=== PATIENT | female | born 1935 | race Caucasian/White ===

== ENCOUNTER 2017-01-31 06:45 | Emergency (ER) | payer MEDICARE, OTHER ==
[2017-01-31 06:56] VITALS: BP 161/85
[2017-01-31] MEDS ORDERED: Sodium Chloride 0.9% 10 ML Syringe FLUSH PRN ×2 (06:59→08:07)
[2017-01-31] MEDS ORDERED: Aspirin 81 MG Tab.Chew PO ONE (06:59)
--- NOTE | 2017-01-31 08:02 | EDM.PDOC ---
ED HPI GENERAL MEDICAL PROBLEM - General Chief Complaint: Chest Pain Stated Complaint: CHEST PAIN Time Seen by Provider: 01/31/17 06:55 Source of Information: Reports: Patient History Limitations: Reports: No Limitations - History of Present Illness INITIAL COMMENTS - FREE TEXT/NARRATIVE: The patient presents with left chest, shoulder, upper back and arm pain. This all started this morning and it woke her up. She denies any trauma. The pain is sharp. The chest and back pain are gone but she still has left shoulder pain. This comes and goes. She denies shortness of breath. She has no fever, chills, cough, congestion, runny nose, abdominal pain, nausea or vomiting. She denies any leg pain or swelling. She has a pacemaker. Onset: Gradual Duration: Hour(s): (Woke her up this morning) Location: Reports: Chest, Back, Upper Extremity, Left (Shoulder) Quality: Reports: Sharp Severity: Moderate Improves with: Reports: None Worsens with: Reports: Movement Context: Reports: Activity (It woke her up) Associated Symptoms: Reports: Chest Pain. Denies: Cough, Fever/Chills, Headaches, Nausea/Vomiting, Shortness of Breath Chest Pain Score (Numeric/FACES): 10 - Related Data Allergies Allergy/AdvReac Type Severity Reaction Status Date / Time No Known Allergies Allergy Verified 01/31/17 06:56 Home Meds: Home Meds Apixaban [Eliquis] 5 mg PO BID 04/03/14 [History] Aspirin [Roni Chewable Aspirin] 81 mg PO DAILY 04/03/14 [History] Jem Mag Chewable PO QPM 04/03/14 [History] Cholestrol Reduction Complex PO BID 04/03/14 [History] Lecithin PO BID 04/03/14 [History] Metoprolol Tartrate PO BID 04/03/14 [History] [place] Guard PO BID 04/03/14 [History] Osteo Matrix PO BID 04/03/14 [History] Ubidecarenone [Co Q-10] PO QPM 04/03/14 [History] Vitamin B Complex [B Complex] PO 1200 04/03/14 [History] Vitilzer Gold PO QAM 04/03/14 [History] Ketorolac [Acular 0.5% Ophth Soln] 1 drop OP TID #1 bottle 04/04/14 [Rx] Past Medical History HEENT History: Reports: Cataract Cardiovascular History: Reports: Hypertension, Pacemaker Psychiatric History: Reports: Anxiety Social & Family History - Family History Family Medical History: Noncontributory - Tobacco Use Smoking Status *Q: Former Smoker Used Tobacco, but Quit: Yes Month Tobacco Last Used: 1 - Recreational Drug Use Recreational Drug Use: No ED ROS GENERAL - Review of Systems Review Of Systems: See Below Constitutional: Reports: No Symptoms HEENT: Reports: No Symptoms Respiratory: Reports: No Symptoms Cardiovascular: Reports: Chest Pain Endocrine: Reports: No Symptoms GI/Abdominal: Reports: No Symptoms : Reports: No Symptoms Musculoskeletal: Reports: Shoulder Pain (Left), Arm Pain (Left), Back Pain ( Left upper) Skin: Reports: No Symptoms Neurological: Reports: No Symptoms ED EXAM, GENERAL - Physical Exam Exam: See Below Exam Limited By: No Limitations General Appearance: Alert, No Apparent Distress Ears: Normal External Exam Nose: Normal Inspection Head: Atraumatic, Normocephalic Neck: Normal Inspection Respiratory/Chest: No Respiratory Distress, Lungs Clear, Normal Breath Sounds Cardiovascular: Regular Rate, Rhythm, No Edema, No Murmur GI/Abdominal: Soft, Non-Tender, No Organomegaly, No Mass Back Exam: Normal Inspection Extremities: Other (Pain upon palpation to the left posterior shoulder. Good sensation and pulses distally.) Neurological: Alert, Oriented, No Motor/Sensory Deficits EKG INTERPRETATION EKG Date: 01/31/17 Time: 06:52 Rhythm: Other (AV dual-paced complexes with some inhibition) [place]: Normal P-Wave: Present QRS: Normal ST-T: Normal QT: Normal Course - Vital Signs Last Recorded V/S: Last Vital Signs Temp 98.5 F 01/31/17 06:52 Pulse 96 01/31/17 06:52 Resp 18 01/31/17 06:52 BP 161/85 H 01/31/17 06:52 Pulse Ox 94 L 01/31/17 06:52 - Orders/Labs/Meds Orders: Active Orders 24 hr Category Date Time Status Cardiac Monitoring [RC] . DIRECTED Care 01/31/17 06:59 Active EKG Documentation Completion [RC] STAT Care 01/31/17 06:59 Active Oxygen Therapy [RC] PRN Care 01/31/17 06:59 Active Peripheral IV Care [RC] . DIRECTED Care 01/31/17 06:59 Active Chest 1V Frontal [CR] Stat Exams 01/31/17 06:59 Taken Sodium Chloride 0.9% [Normal Saline] 100 ml Med 01/31/17 08:15 Active IV ASDIRECTED Sodium Chloride 0.9% [Saline Flush] Med 01/31/17 06:59 Active 10 ml FLUSH ASDIRECTED PRN Sodium Chloride 0.9% [Saline Flush] Med 01/31/17 08:07 Active 10 ml FLUSH ONETIME PRN Peripheral IV Insertion Adult [OM.PC] Stat Oth 01/31/17 06:59 Ordered Medication Orders Sodium Chloride (Normal Saline) 100 mls @ 80 mls/hr IV ASDIRECTED CRUZ Last Admin: 01/31/17 08:20 Dose: 80 mls/hr Sodium Chloride (Saline Flush) 10 ml FLUSH ASDIRECTED PRN PRN Reason: Keep Vein Open Last Admin: 01/31/17 07:19 Dose: 10 ml Sodium Chloride (Saline Flush) 10 ml FLUSH ONETIME PRN PRN Reason: IV FLUSH Last Admin: 01/31/17 08:20 Dose: 10 ml Labs: Laboratory Tests 01/31/17 01/31/17 01/31/17 Range/Units 07:06 07:06 09:40 WBC 5.62 (3.98-10.04) K/mm3 RBC 4.92 (3.98-5.22) M/mm3 Hgb 15.2 (11.2-15.7) gm/L Hct 45.6 H (34.1-44.9) % MCV 92.7 (79.4-94.8) fl MCH 30.9 (25.6-32.2) pg MCHC 33.3 (32.2-35.5) g/dl RDW Std Deviation 43.2 (36.4-46.3) fL Plt Count 245 (182-369) K/mm3 MPV 10.3 (9.4-12.3) fl Neut % (Auto) 65.4 (34.0-71.1) % Lymph % (Auto) 19.6 (19.3-51.7) % [place] % (Auto) 10.9 (4.7-12.5) % Eos % (Auto) 3.4 (0.7-5.8) Baso % (Auto) 0.5 (0.1-1.2) % Neut # (Auto) 3.68 (1.56-6.13) K/mm3 Lymph # (Auto) 1.10 L (1.18-3.74) K/mm3 [place] # (Auto) 0.61 H (0.24-0.36) K/mm3 Eos # (Auto) 0.19 (0.04-0.36) K/mm3 Baso # (Auto) 0.03 (0.01-0.08) K/mm3 Sodium 139 (136-145) mEq/L Potassium 4.0 (3.5-5.1) mEq/L Chloride 101 (98-107) mEq/L Carbon Dioxide 30 (21-32) mEq/L Anion Gap 12.0 (5-15) BUN 31 H (7-18) mg/dL Creatinine 1.4 H (0.55-1.02) mg/dL Est Cr Clr Drug Dosing 29.00 mL/min Estimated GFR (MDRD) 36 (>60) mL/min BUN/Creatinine Ratio 22.1 H (14-18) Glucose 112 (83-115) mg/dL Calcium 10.2 H (8.5-10.1) mg/dL Total Bilirubin 0.7 (0.2-1.0) mg/dL AST 26 (15-37) U/L ALT 25 (14-59) U/L Alkaline Phosphatase 115 (46-116) U/L Troponin I < 0.017 < 0.017 (0.00-0.056) ng/mL Total Protein 7.4 (6.4-8.2) g/dl Albumin 3.3 L (3.4-5.0) g/dl Globulin 4.1 gm/dL Albumin/Globulin Ratio 0.8 L (1-2) Meds: Medications Generic Name Dose Route Start Last Admin Trade Name Freq PRN Reason Stop Dose Admin Sodium Chloride 100 mls @ 80 mls/hr 01/31/17 08:15 01/31/17 08:20 Normal Saline IV 80 mls/hr ASDIRECTED CRUZ Administration Sodium Chloride 10 ml 01/31/17 06:59 01/31/17 07:19 Saline Flush FLUSH 10 ml ASDIRECTED PRN Administration Keep Vein Open Sodium Chloride 10 ml 01/31/17 08:07 01/31/17 08:20 Saline Flush FLUSH 10 ml ONETIME PRN Administration IV FLUSH Discontinued Medications Generic Name Dose Route Start Last Admin Trade Name Jim PRN Reason Stop Dose Admin Aspirin 324 mg 01/31/17 06:59 01/31/17 07:18 Aspirin PO 01/31/17 07:00 324 mg ONETIME ONE Administration Hydromorphone HCl 0.5 mg 01/31/17 08:09 01/31/17 08:26 Dilaudid IVPUSH 01/31/17 08:10 0.5 mg ONETIME ONE Administration Sodium Chloride 250 mls @ 1,000 mls/hr 01/31/17 08:05 01/31/17 08:27 Normal Saline IV 01/31/17 08:19 1,000 mls/hr .BOLUS ONE Administration Iopamidol 100 ml 01/31/17 08:07 01/31/17 08:19 Isovue-370 (76%) IVPUSH 01/31/17 08:08 60 ml ONETIME ONE Administration - Re-Assessments/Exams Free Text/Narrative Re-Assessment/Exam: 01/31/17 08:19 I ordered oxygen as needed, EKG, CXR, labs, and aspirin. Her EKG shows AV dual- paced complexes. Her CXR shows no infiltrates. Her CBC is negative. Her creatinine was elevated at 1.4. Her troponin is negative. She still has some pain to her shoulder. I ordered her some dilaudid 0.5mg IV. She also has lower oxygen saturations of the upper 80s and low 90s at times with a good pleth. I have ordered a CT angio of her chest. 01/31/17 10:[address] looks good. She is doing better. Her repeat troponin is negative. She feels better and her oxygen saturations are better. I feel this is arthritis. I will have her follow up with Dr Garcia. Departure - Departure Time of Disposition: 10:30 Disposition: Home, Self-Care 01 Condition: Good Clinical Impression: Atypical chest pain Left shoulder pain Qualifiers: Chronicity: chronic Qualified Code(s): M25.512 - Pain in left shoulder; G89.29 - Other chronic pain Referrals: Laila Woodruff NP [Primary Care Provider] - Abran Garcia MD [Physician] - 2 Weeks Forms: ED Department Discharge Additional Instructions: Take tylenol or motrin for your pain. If this does not get better in a week, follow up with Dr Garcia. Please return if you are worse. - My Orders Last 24 Hours: My Active Orders 01/31/17 06:59 Cardiac Monitoring [RC] . DIRECTED EKG Documentation Completion [RC] STAT Oxygen Therapy [RC] PRN Peripheral IV Care [RC] . DIRECTED Chest 1V Frontal [CR] Stat Sodium Chloride 0.9% [Saline Flush] 10 ml FLUSH ASDIRECTED PRN Peripheral IV Insertion Adult [OM.PC] Stat 01/31/17 08:07 Sodium Chloride 0.9% [Saline Flush] 10 ml FLUSH ONETIME PRN 01/31/17 08:15 Sodium Chloride 0.9% [Normal Saline] 100 ml IV ASDIRECTED - Assessment/Plan Last 24 Hours: My Active Orders 01/31/17 06:59 Cardiac Monitoring [RC] . DIRECTED EKG Documentation Completion [RC] STAT Oxygen Therapy [RC] PRN Peripheral IV Care [RC] . DIRECTED Chest 1V Frontal [CR] Stat Sodium Chloride 0.9% [Saline Flush] 10 ml FLUSH ASDIRECTED PRN Peripheral IV Insertion Adult [OM.PC] Stat 01/31/17 08:07 Sodium Chloride 0.9% [Saline Flush] 10 ml FLUSH ONETIME PRN 01/31/17 08:15 Sodium Chloride 0.9% [Normal Saline] 100 ml IV ASDIRECTED
[2017-01-31] MEDS ORDERED: Sodium Chloride 0.9% 250 ML IV ONE (08:05)
[2017-01-31] MEDS ORDERED: Iopamidol 755 Mg/ML 100 ML Bottle IVPUSH ONE (08:07)
[2017-01-31] MEDS ORDERED: HYDROmorphone 0.5 MG/0.5 ML Syringe IVPUSH ONE (08:09)
[2017-01-31] MEDS ORDERED: Sodium Chloride 0.9% 100 ML IV SCH (08:15)
--- NOTE | 2017-01-31 08:51 | CT ---
CT chest Technique: Multiple axial sections through the chest were obtained. Intravenous contrast was utilized. Study has been performed as a pulmonary angiogram protocol. Comparison: Previous CT chest dated 07/02/11. Findings: Small portion of the upper abdominal structures appear within normal limits. Heart is mildly enlarged. Mild coronary artery calcification is seen. Pulmonary arteries are fairly well-opacified. No filling defects are seen to indicate pulmonary embolism. Mediastinum and hilar regions show no adenopathy or mass. Atherosclerotic calcification is noted within the thoracic aorta. Lungs shows no acute infiltrates. No pleural effusions are seen. Bone window settings were reviewed which show scoliosis and scattered degenerative change within the spine. Impression: 1. No findings of pulmonary embolism. 2. Other incidental findings as noted above. Nothing acute is appreciated on CT study of the chest. Diagnostic code #2
--- NOTE | 2017-02-01 10:32 | CR ---
Chest: Portable view of the chest was obtained. Comparison: Previous chest x-ray of 09/12/11. Heart size and mediastinum are normal. Lungs are clear. Pacemaker noted. Bony structures show what appears to be a chronic rotator cuff tear within the right shoulder. Impression: 1. Incidental findings. Nothing acute is appreciated on portable chest x-ray. Diagnostic code #2
== END 2017-01-31 11:43 | disposition home or self-care (01) ==
LOC: JD.ED 06:45
DX: R07.89 Other chest pain (principal); M25.512 Pain in left shoulder; G89.29 Other chronic pain; I10 Essential (primary) hypertension; Z79.82 Long term (current) use of aspirin; Z79.899 Other long term (current) drug therapy
CPT/HCPCS: 36415; 71010; 71275; 80053; 84484; 85025; 93005; 96361; 96374; 99285; A9270; J1170; J7030; J7040; J7050; Q9967

== ENCOUNTER 2017-03-19 03:15 | Emergency (ER) | payer MEDICARE, OTHER ==
[2017-03-19] MEDS ORDERED: HYDROmorphone 0.5 MG/0.5 ML Syringe IVPUSH ONE ×2 (03:46→05:23)
[2017-03-19] MEDS ORDERED: Sodium Chloride 0.9% 10 ML Syringe FLUSH PRN (03:46)
--- NOTE | 2017-03-19 04:03 | EDM.PDOC ---
ED HPI GENERAL MEDICAL PROBLEM - General Chief Complaint: Upper Extremity Injury/Pain Stated Complaint: arm injury Time Seen by Provider: 03/19/17 03:40 Source of Information: Reports: Patient, Family (), RN Notes Reviewed - History of Present Illness INITIAL COMMENTS - FREE TEXT/NARRATIVE: 81-year-old female comes in with left shoulder and left upper arm pain. This first started about 3 days ago but was more tolerable until early this morning. She does not recall falling or injuring the shoulder or arm in any way. However she has had bruising of the left arm develope over the last day or 2. She thinks she may have aggravated her shoulder or injury with movement in bed when sleeping early this morning. The pain at present is very severe with any type of motion of her left arm or shoulder. No chest pain or difficulty breathing. No focal weakness. Left Arm Pain Score (Numeric/FACES): 8 - Related Data Allergies Allergy/AdvReac Type Severity Reaction Status Date / Time No Known Allergies Allergy Verified 03/19/17 03:31 Home Meds: Home Meds Apixaban [Eliquis] 5 mg PO BID 04/03/14 [History] Aspirin [Roni Chewable Aspirin] 81 mg PO DAILY 04/03/14 [History] Jem Mag Chewable 1 tab PO QPM 04/03/14 [History] Cholestrol Reduction Complex 1 tab PO BID 04/03/14 [History] Lecithin 1 tab PO BID 04/03/14 [History] Metoprolol Tartrate 1 tab PO BID 04/03/14 [History] [place] Guard 1 tab PO BID 04/03/14 [History] Osteo Matrix 1 tab PO BID 04/03/14 [History] Ubidecarenone [Co Q-10] 1 tab PO QPM 04/03/14 [History] Vitamin B Complex [B Complex] 1 tab PO 1200 04/03/14 [History] Vitilzer Gold 1 tab PO QAM 04/03/14 [History] Ketorolac [Acular 0.5% Ophth Soln] 1 drop OP TID #1 bottle 04/04/14 [Rx] Hydrocodone/Acetaminophen [[place] 5-325] 1 tab PO Q6HR PRN #14 tablet 03/19/17 [ Rx] Past Medical History HEENT History: Reports: Cataract Cardiovascular History: Reports: Hypertension, Pacemaker Psychiatric History: Reports: Anxiety Social & Family History - Family History Family Medical History: Noncontributory - Tobacco Use Smoking Status *Q: Never Smoker Used Tobacco, but Quit: Yes Month Tobacco Last Used: 1 - Caffeine Use Caffeine Use: Reports: Coffee - Recreational Drug Use Recreational Drug Use: No Review of Systems - Review of Systems Review Of Systems: See Below Constitutional: Reports: No Symptoms Mouth/Throat: Reports: No Symptoms Respiratory: Denies: Shortness of Breath Cardiovascular: Denies: Chest Pain GI/Abdominal: Denies: Abdominal Pain, Nausea, Vomiting Musculoskeletal: Reports: Shoulder Pain, Arm Pain Skin: Reports: Bruising (Left upper arm) Neurological: Denies: Numbness, Tingling, Weakness ED EXAM, GENERAL - Physical Exam Exam: See Below General Appearance: Alert, Anxious, Moderate Distress Head: Atraumatic Neck: Supple Respiratory/Chest: No Respiratory Distress Extremities: Other (Quite severe tenderness of the left shoulder diffusely, left upper arm also very tender, no visible deformity, severe pain with even minimal motion of the left arm or shoulder.). No: Joint Swelling Neurological: No Motor/Sensory Deficits Skin Exam: Warm, Dry, Other (There is quite markedly bruising of the left mid to distal arm) Course - Vital Signs Last Recorded V/S: Last Vital Signs Temp 97 F 03/19/17 03:23 Pulse Resp 20 03/19/17 03:23 BP Pulse Ox - Orders/Labs/Meds Orders: Active Orders 24 hr Category Date Time Status Peripheral IV Care [RC] . DIRECTED Care 03/19/17 03:46 Active Humerus Lt [CR] Routine Exams 03/19/17 04:45 Taken Shoulder Comp Lt [CR] Stat Exams 03/19/17 03:47 Taken Sodium Chloride 0.9% [Saline Flush] Med 03/19/17 03:46 Active 10 ml FLUSH ASDIRECTED PRN Peripheral IV Insertion Adult [OM.PC] Stat Oth 03/19/17 03:46 Ordered Medication Orders Sodium Chloride (Saline Flush) 10 ml FLUSH ASDIRECTED PRN PRN Reason: Keep Vein Open Last Admin: 03/19/17 04:09 Dose: 10 ml Meds: Medications Generic Name Dose Route Start Last Admin Trade Name Freq PRN Reason Stop Dose Admin Sodium Chloride 10 ml 03/19/17 03:46 03/19/17 04:09 Saline Flush FLUSH 10 ml ASDIRECTED PRN Administration Keep Vein Open Discontinued Medications Generic Name Dose Route Start Last Admin Trade Name Freq PRN Reason Stop Dose Admin Hydromorphone HCl 0.5 mg 03/19/17 03:46 03/19/17 04:06 Dilaudid IVPUSH 03/19/17 03:47 0.5 mg ONETIME ONE Administration Hydromorphone HCl 0.25 mg 03/19/17 05:23 03/19/17 05:37 Dilaudid IVPUSH 03/19/17 05:24 0.25 mg ONETIME ONE Administration - Re-Assessments/Exams Free Text/Narrative Re-Assessment/Exam: 03/19/17 05:25 X-rays of the left shoulder show inferior subluxation suggestive for probable joint effusion, no fracture visible., We did give Dilaudid 0.5 mg IV shortly after arrival. That now is starting to wear off. She is not drowsy from that. She still does have a fair amount of pain with any type of motion. We'll give another 0.25 mg prior to discharge. Discharge instructions as documented. Departure - Departure Time of Disposition: 05:27 Disposition: Home, Self-Care 01 Condition: Fair Clinical Impression: Contusion of left shoulder Qualifiers: Encounter type: initial encounter Qualified Code(s): S40.012A - Contusion of left shoulder, initial encounter - Discharge Information Prescriptions: Hydrocodone/Acetaminophen [[place] 5-325] 1 tab PO Q6HR PRN #14 tablet PRN Reason: Pain Instructions: Contusion, [id number] Referrals: PCP,None [Primary Care Provider] - Forms: ED Department Discharge Additional Instructions: Rest arm and shoulder, use arm sling for the next 4-5 days for comfort and protection, physical therapy recommended to help you get better more quickly, see Dr. Garcia, Orthopedist next available appointment, call [phone] for appt. Tylenol up to 3 times daily for discomfort as needed or you may take hydrocodone if needed for severe pain up to 3 times daily. Do not take Tylenol and hydrocodone at the same time. - My Orders Last 24 Hours: My Active Orders 03/19/17 03:46 Peripheral IV Care [RC] . DIRECTED Sodium Chloride 0.9% [Saline Flush] 10 ml FLUSH ASDIRECTED PRN Peripheral IV Insertion Adult [OM.PC] Stat 03/19/17 03:47 Shoulder Comp Lt [CR] Stat 03/19/17 04:45 Humerus Lt [CR] Routine - Assessment/Plan Last 24 Hours: My Active Orders 03/19/17 03:46 Peripheral IV Care [RC] . DIRECTED Sodium Chloride 0.9% [Saline Flush] 10 ml FLUSH ASDIRECTED PRN Peripheral IV Insertion Adult [OM.PC] Stat 03/19/17 03:47 Shoulder Comp Lt [CR] Stat 03/19/17 04:45 Humerus Lt [CR] Routine
[2017-03-19] MEDS ORDERED: Doxycycline 100 MG Cap PO ONE (05:11)
[2017-03-19 06:36] VITALS: BP 173/80
--- NOTE | 2017-03-19 06:41 | CR ---
Left humerus: Two views of the left humerus were obtained. Inferior subluxation is again seen within the glenohumeral joint. Osteopenia is noted. No acute fracture or other abnormality is seen. Impression: 1. Inferior subluxation again seen within the glenohumeral joint. 2. Osteopenia with nothing acute being seen on two-view left humerus study. Diagnostic code #2 I agree with preliminary report issued by [facility] ([facility] preliminary report dictated on 03/19/17, 6:07 AM Central Time)
--- NOTE | 2017-03-19 06:41 | CR ---
Left shoulder: Three views of the left shoulder were obtained. Inferior subluxation seen of the humeral head in relation to the glenoid. Degenerative change is noted within the acromioclavicular joint with narrowing and inferior and superior spurring. Osteopenia is seen. No acute fracture or other abnormality is noted within the shoulder. Degenerative change and scoliosis is seen within the spine. Pacemaker is noted. Impression: 1. Inferior subluxation of the humeral head raising the possibility of joint effusion or surrounding soft tissue injury. 2. Other incidental findings. Diagnostic code #3 Agree with preliminary report issued by [facility] ([facility] preliminary report dictated on 03/19/17, 6:07 AM Central Time)
== END 2017-03-19 06:15 | disposition home or self-care (01) ==
LOC: JD.ED 03:15
DX: S43.032A Inferior subluxation of left humerus, initial encounter (principal); S40.012A Contusion of left shoulder, initial encounter; Z79.899 Other long term (current) drug therapy; Z79.82 Long term (current) use of aspirin; X58.XXXA Exposure to other specified factors, initial encounter
CPT/HCPCS: 73030; 73060; 96374; 96376; 99284; J1170; J7050; 99283

== ENCOUNTER 2017-03-21 09:32 | Emergency (ER) | payer MEDICARE, OTHER ==
[2017-03-21 10:01] VITALS: BP 123/84
[2017-03-21] MEDS ORDERED: Acetaminophen/HYDROcodone 325-5 MG Tab PO ONE (11:33)
--- NOTE | 2017-03-21 11:39 | EDM.PDOC ---
ED HPI GENERAL MEDICAL PROBLEM - General Chief Complaint: Upper Extremity Injury/Pain Stated Complaint: ARM INJURY NOT BETTER Time Seen by Provider: 03/21/17 11:21 Source of Information: Reports: Patient History Limitations: Reports: No Limitations - History of Present Illness INITIAL COMMENTS - FREE TEXT/NARRATIVE: Patient is a 81-year-old female who bumped her left upper arm 2 days ago causing a certain amount of swelling and bruising to the left humerus. She was seen in the ED with x-rays of the left shoulder and humerus. No bony abnormalities were noted. She was discharged home on some pain medications which was she's been taking religiously. Over the past few days she is noticing increased swelling to left shoulder with worsening pain. She is not wearing a sling. In addition she has limited range of motion unable to lift her arm above her shoulder secondary to pain. Pain is isolated left shoulder and left humerus. No numbness tingling distally. No additional concerning symptoms at this time. Left Arm Pain Score (Numeric/FACES): 9 - Related Data Allergies Allergy/AdvReac Type Severity Reaction Status Date / Time No Known Allergies Allergy Verified 03/21/17 09:52 Home Meds: Home Meds Apixaban [Eliquis] 5 mg PO BID 04/03/14 [History] Aspirin [Roni Chewable Aspirin] 81 mg PO DAILY 04/03/14 [History] Jem Mag Chewable 1 tab PO QPM 04/03/14 [History] Cholestrol Reduction Complex 1 tab PO BID 04/03/14 [History] Lecithin 1 tab PO BID 04/03/14 [History] Metoprolol Tartrate 1 tab PO BID 04/03/14 [History] [place] Guard 1 tab PO BID 04/03/14 [History] Osteo Matrix 1 tab PO BID 04/03/14 [History] Ubidecarenone [Co Q-10] 1 tab PO QPM 04/03/14 [History] Vitamin B Complex [B Complex] 1 tab PO 1200 04/03/14 [History] Vitilzer Gold 1 tab PO QAM 04/03/14 [History] Ketorolac [Acular 0.5% Ophth Soln] 1 drop OP TID #1 bottle 04/04/14 [Rx] Hydrocodone/Acetaminophen [[place] 5-325] 1 tab PO Q6HR PRN #14 tablet 03/19/17 [ Rx] Past Medical History HEENT History: Reports: Cataract Cardiovascular History: Reports: Hypertension, Pacemaker Psychiatric History: Reports: Anxiety Social & Family History - Family History Family Medical History: Noncontributory - Tobacco Use Smoking Status *Q: Never Smoker Used Tobacco, but Quit: Yes Month Tobacco Last Used: 1 - Caffeine Use Caffeine Use: Reports: None - Recreational Drug Use Recreational Drug Use: No Review of Systems - Review of Systems Review Of Systems: ROS reveals no pertinent complaints other than HPI. ED EXAM, GENERAL - Physical Exam Exam: See Below Exam Limited By: No Limitations General Appearance: Alert, WD/WN, Moderate Distress Ears: Hearing Grossly Normal Nose: Normal Inspection Throat/Mouth: Normal Voice, No Airway Compromise Head: Atraumatic, Normocephalic Neck: Normal Inspection, Supple Respiratory/Chest: No Respiratory Distress, Lungs Clear, Normal Breath Sounds, Chest Non-Tender Cardiovascular: Normal Peripheral Pulses, Regular Rate, Rhythm Peripheral Pulses: 2+: Radial (L) Back Exam: Normal Inspection Extremities: Other (CV swelling noted to the left shoulder and left humerus region with ecchymosis. No pain to the olecranon. No pain to the forearm or wrist/hand. No sensory deficits distal. On examination left shoulder there is increased swelling and limited range of motion secondary to pain. Suspect rotator cuff tear and also hemarthrosis.) Neurological: Alert, Oriented, Normal Cognition, No Motor/Sensory Deficits Psychiatric: Normal Affect, Normal Mood Skin Exam: Warm, Dry, Intact, Normal Color Course - Vital Signs Last Recorded V/S: Last Vital Signs Temp 98.8 F 03/21/17 09:55 Pulse 93 03/21/17 09:55 Resp 16 03/21/17 09:55 BP 123/84 03/21/17 09:55 Pulse Ox 98 03/21/17 09:55 - Orders/Labs/Meds Labs: Laboratory Tests 03/21/17 03/21/17 03/21/17 Range/Units 13:36 13:36 13:36 WBC 6.54 (3.98-10.04) K/mm3 RBC 4.22 (3.98-5.22) M/mm3 Hgb 13.4 (11.2-15.7) gm/L Hct 40.1 (34.1-44.9) % MCV 95.0 H (79.4-94.8) fl MCH 31.8 (25.6-32.2) pg MCHC 33.4 (32.2-35.5) g/dl RDW Std Deviation 44.2 (36.4-46.3) fL Plt Count 223 (182-369) K/mm3 MPV 10.0 (9.4-12.3) fl Neut % (Auto) 68.6 (34.0-71.1) % Lymph % (Auto) 12.8 L (19.3-51.7) % Kane % (Auto) 15.0 H (4.7-12.5) % Eos % (Auto) 2.9 (0.7-5.8) Baso % (Auto) 0.5 (0.1-1.2) % Neut # (Auto) 4.49 (1.56-6.13) K/mm3 Lymph # (Auto) 0.84 L (1.18-3.74) K/mm3 Kane # (Auto) 0.98 H (0.24-0.36) K/mm3 Eos # (Auto) 0.19 (0.04-0.36) K/mm3 Baso # (Auto) 0.03 (0.01-0.08) K/mm3 ESR 81 H (0-20) mm/hr Sodium 140 (136-145) mEq/L Potassium 3.9 (3.5-5.1) mEq/L Chloride 105 (98-107) mEq/L Carbon Dioxide 26 (21-32) mEq/L Anion Gap 12.9 (5-15) BUN 28 H (7-18) mg/dL Creatinine 1.1 H (0.55-1.02) mg/dL Est Cr Clr Drug Dosing 35.48 mL/min Estimated GFR (MDRD) 48 (>60) mL/min BUN/Creatinine Ratio 25.5 H (14-18) Glucose 88 (83-115) mg/dL Calcium 10.4 H (8.5-10.1) mg/dL Total Bilirubin 1.3 H (0.2-1.0) mg/dL AST 39 H (15-37) U/L ALT 39 (14-59) U/L Alkaline Phosphatase 141 H (46-116) U/L C-Reactive Protein 18.5 H* (<1.0) mg/dL Total Protein 7.3 (6.4-8.2) g/dl Albumin 3.1 L (3.4-5.0) g/dl Globulin 4.2 gm/dL Albumin/Globulin Ratio 0.7 L (1-2) Body Fluid Site Fluid Type Fluid Volume ML Fluid Color Fluid Appearance Fluid WBC (0.20-0.60) k/mm*3 Fluid RBC (0.00-0.010) 10*6/uL Fluid Diff Comment Fluid Seg Neutrophils (0-25) % Fluid Lymphocytes (0-78) % Fluid Monocytes (0-71) % Fl Polymorphonucl Cell Fluid Macrophages Fluid Glucose mg/dL Fluid Total Protein gm/dl Fluid LDH U/L Synovial Crystals 03/21/17 03/21/17 Range/Units 15:28 15:28 WBC (3.98-10.04) K/mm3 RBC (3.98-5.22) M/mm3 Hgb (11.2-15.7) gm/L Hct (34.1-44.9) % MCV (79.4-94.8) fl MCH (25.6-32.2) pg MCHC (32.2-35.5) g/dl RDW Std Deviation (36.4-46.3) fL Plt Count (182-369) K/mm3 MPV (9.4-12.3) fl Neut % (Auto) (34.0-71.1) % Lymph % (Auto) (19.3-51.7) % Kane % (Auto) (4.7-12.5) % Eos % (Auto) (0.7-5.8) Baso % (Auto) (0.1-1.2) % Neut # (Auto) (1.56-6.13) K/mm3 Lymph # (Auto) (1.18-3.74) K/mm3 Kane # (Auto) (0.24-0.36) K/mm3 Eos # (Auto) (0.04-0.36) K/mm3 Baso # (Auto) (0.01-0.08) K/mm3 ESR (0-20) mm/hr Sodium (136-145) mEq/L Potassium (3.5-5.1) mEq/L Chloride (98-107) mEq/L Carbon Dioxide (21-32) mEq/L Anion Gap (5-15) BUN (7-18) mg/dL Creatinine (0.55-1.02) mg/dL Est Cr Clr Drug Dosing mL/min Estimated GFR (MDRD) (>60) mL/min BUN/Creatinine Ratio (14-18) Glucose (83-115) mg/dL Calcium (8.5-10.1) mg/dL Total Bilirubin (0.2-1.0) mg/dL AST (15-37) U/L ALT (14-59) U/L Alkaline Phosphatase (46-116) U/L C-Reactive Protein (<1.0) mg/dL Total Protein (6.4-8.2) g/dl Albumin (3.4-5.0) g/dl Globulin gm/dL Albumin/Globulin Ratio (1-2) Body Fluid Site Shoulder:left Fluid Type Synovial fluid Fluid Volume 20 ML Fluid Color Red Fluid Appearance Turbid Fluid WBC 11.48 H (0.20-0.60) k/mm*3 Fluid RBC 1.386 H (0.00-0.010) 10*6/uL Fluid Diff Comment See note Fluid Seg Neutrophils 68.0 H (0-25) % Fluid Lymphocytes 9.0 (0-78) % Fluid Monocytes 14.0 (0-71) % Fl Polymorphonucl Cell Not Reportable Fluid Macrophages 8 Fluid Glucose 81 mg/dL Fluid Total Protein 4.6 gm/dl Fluid LDH 557 U/L Synovial Crystals see below Meds: Medications Discontinued Medications Generic Name Dose Route Start Last Admin Trade Name Freq PRN Reason Stop Dose Admin Hydrocodone Bitart/Acetaminophen 1 tab 03/21/17 11:33 03/21/17 11:51 [place] 325-5 Mg PO 03/21/17 11:34 1 tab ONETIME ONE Administration Naproxen 500 mg 03/21/17 14:55 03/21/17 15:54 Naprosyn PO 03/21/17 14:56 500 mg ONETIME ONE Administration - Re-Assessments/Exams Free Text/Narrative Re-Assessment/Exam: Reviewed x-rays left shoulder from previous ED visit dated 03/19/2017 impression : Inferior subluxation of the humeral head raising the possibility of joint effusion or surrounding soft tissue injury. Other incidental findings. Left humerus impression: Inferior subluxation again was seen in the glenohumeral joint. Osteopenia with nothing acute been seen on 2 view left humerus study. Suspect rotator cuff tear with hemarthrosis. Ordered arm sling and [place] 5-325 one tab by mouth. 03/21/17 12:19 x-ray of the shoulder did not reveal any acute bony abnormalities. Improvements noted to the inferior subluxation. Awaiting final interpretation. Final interpretation left shoulder impression: Osteopenia. Nothing acute is seen on left shoulder study. 03/21/17 12:[address] Garcia. He will call back. He is currently in surgery. 03/21/17 13:[address] Garcia in the ED. Suggested ESR and CRP. Will also order basic labs including CBC and chem 14. This is for evaluating septic joint. 03/21/17 14:[address] Garcia arrived back in the E.D. Requests call back if labs abnormal. Other [place] suggest medrol dose pack, pain management, and f/u in the clinic after Thanksgiving. 03/21/17 14:56 CBC and chemistry panel were essentially normal. Creatinine 1.1. CRP and ESR pending. 03/21/17 15:00 CRP 18.6 and ESR 81. Spoke with Dr. Garcia he will be in to assist. Dr. Garcia assisted me with joint aspiration. Aspirate was yaima blood. Dr. Garcia recommended fluid analysis. Ordered cell count, crystals, culture, glucose, Gram stain, LDH, and protein. There are no complications associated with joint aspiration. Patient had increased range of motion and decrease in pain in noted. Will discharge patient home with instructions as documented. 03/24/17 10:40 Wound Culture after two days no growth. NO antibiotics required at this point. Departure - Departure Time of Disposition: 15:42 Disposition: Home, Self-Care 01 Condition: Good Clinical Impression: Hemarthrosis involving glenohumeral joint Qualifiers: Laterality: left Qualified Code(s): M25.012 - Hemarthrosis, left shoulder Left shoulder pain Qualifiers: Chronicity: acute Qualified Code(s): M25.512 - Pain in left shoulder Contusion of left upper arm Qualifiers: Encounter type: subsequent encounter Qualified Code(s): S40.022D - Contusion of left upper arm, subsequent encounter - Discharge Information Instructions: Shoulder Pain, [id number], Contusion, [id number] Referrals: Abran Gracia MD [Physician] - Laila Woodruff NP [Primary Care Provider] - Forms: ED Department Discharge Additional Instructions: As discussed blood was removed from the shoulder joint. We have sent the fluid for further analysis. You'll be notified if infected requiring surgical intervention. In addition your inflammatory markers were quite elevated concerning for other medical issues taking place. We made an appointment with Debra Woodruff your primary care provider for 3:00 tomorrow afternoon the [address] [facility] tomorrow 03/22/2017 to make an appt to be evaluated the week after Thanksgi. For shoulder discomfort take [place] one tab every 6 hours as needed. Apply ice to affected area 3 times a day [address] ice directly on the skin. Refrain from any activities that cause worsening pain. No driving today and while taking the [place]. Return to the ED if you develop any new or worsening symptoms. ED JOINT ASPIRATION PROCEDURE - Joint Apsiration/Arthrocentesis Site: left glenohumeral Skin prep: Chlorhexidine (Hibiciens) Aspiration needle size: 18g Aspirate appearance: bloody Aspirate amount in cc's: 30 Dressing: other (Banded) Complications: No Progress/Comments: Dr. Garcia assisted me with joint aspiration.
--- NOTE | 2017-03-21 12:27 | CR ---
Left shoulder: Four views of left shoulder were obtained. Comparison: Previous left shoulder study of 03/19/17. Glenohumeral alignment appears within normal limits. Osteopenia is noted. No acute fracture or other abnormality is seen. Calcification noted within the superior acromioclavicular joint which is felt to be incidental. Impression: 1. Osteopenia. 2. Nothing acute is seen on left shoulder study. Diagnostic code #2
[2017-03-21] MEDS ORDERED: Naproxen 500 MG Tab PO ONE (14:55)
== END 2017-03-21 16:30 | disposition home or self-care (01) ==
LOC: JD.ED 09:32
DX: S40.022D Contusion of left upper arm, subsequent encounter (principal); M25.512 Pain in left shoulder; M25.012 Hemarthrosis, left shoulder; I10 Essential (primary) hypertension; Z87.891 Personal history of nicotine dependence; Z79.01 Long term (current) use of anticoagulants; Z79.82 Long term (current) use of aspirin; W22.8XXD Striking against or struck by other objects, subsequent encounter
CPT/HCPCS: 20610; 36415; 73030; 80053; 82945; 83615; 84157; 85025; 85652; 86140; 87070; 87205; 89050; 89060; 99284; A9270; 99283